=== PATIENT | male | born 1985 ===

== ENCOUNTER 2017-08-17 13:54 | Emergency (ER) | payer SELFPAY ==
[~2017-08-17] VITALS: Ht 165.1 cm; Wt 88.6 kg
[~2017-08-17 13:54] MED LIST: LORTAB 5/500 501 TAB PO; NAPROSYN500 MG PO; NO HOME MEDICATIONS
[2017-08-17] MEDS ORDERED: VIVLODEX5 MG (14:14)
[2017-08-17] MEDS ORDERED: LAMISIL1% TOP (14:15)
[2017-08-17 14:21] VITALS: BP 135/69; PULSE 60; TEMP 98.7
== END 2017-08-17 14:30 | disposition home or self-care (01) ==
LOC: COL.ER 13:54
DX: S93.402A Sprain of unspecified ligament of left ankle, initial encounter (principal); X50.1XXA Overexertion from prolonged static or awkward postures, initial encounter; Y93.01 Activity, walking, marching and hiking

== ENCOUNTER 2019-05-31 11:24 | Emergency (ER) | payer SELFPAY ==
[~2019-05-31] VITALS: Ht 167.6 cm; Wt 95.5 kg
[~2019-05-31 11:24] MED LIST changes: +LAMISIL1% TOP; +VIVLODEX5 MG
[2019-05-31 11:44] VITALS: TEMP 97.8
[2019-05-31] MEDS ORDERED: NORCO 325 MG-51 TAB PO (13:15)
[2019-05-31] MEDS ORDERED: CEPHALEXIN500 M1 PO (13:15)
[2019-05-31 13:40] VITALS: BP 141/98; PULSE 63
== END 2019-05-31 13:37 | disposition home or self-care (01) ==
LOC: COL.ER 11:24
DX: S61.211A Laceration without foreign body of left index finger without damage to nail, initial encounter (principal); Z23 Encounter for immunization; W26.8XXA Contact with other sharp object(s), not elsewhere classified, initial encounter; Y92.59 Other trade areas as the place of occurrence of the external cause